=== PATIENT | male | born 1965 | race Caucasian/White ===

== ENCOUNTER 2018-04-20 11:34 | Emergency (ER) | payer BC, OTHER ==
[~2018-04-20 11:34] MED LIST: ISOVUE-370 76%-LOCM 1 ML ONE
[2018-04-20 12:58] LABS: #Basophils 0.1 thou/uL (0.0-0.2); #Eosinphils 0.1 thou/uL (0.0-0.7); #Lymphocytes 1.4 thou/uL (1.20-3.40); #Monocytes 0.7 thou/uL (0.11-0.59); #Neutrophils 8.3 thou/uL (1.40-6.50); %Basophils 0.7 % (0.0-1.0); %Eosinophils 1.3 % (0.0-10.0); %Lymphocytes 13.1 % (21.0-51.0); %Monocytes 6.7 % (0.0-10.0); %Neutrophils 78.2 % (42.0-75.0); Hemoglobin 13.6 g/dL (14.0-18.0); Mean Corpuscular HGB CONC 33.6 g/dL (32.0-36.0); Mean Corpuscular Hemoglobin 27.2 pg (27.0-31.0); Mean Corpuscular Volume 80.9 fL (78.0-98.0); Mean Platelet Volume 7.7 fL (7.4-10.4); Platelet Count 386 thou/uL (130-400); RBC Distribution Width 12.7 % (11.5-14.5); Red Blood Cell (RBC) Count 5.01 mill/uL (4.70-6.10); White Blood Cell (WBC) Count 10.6 thou/uL (4.8-10.8)
[2018-04-20 13:14] LABS: Bilirubin Negative (Negative); Blood, Urine Moderate (Negative); Clarity CLEAR (Clear); Glucose, Urine (Dipstick) >=1000 mg/dL (Negative); Leukocyte Negative (Negative); Nitrite Negative (Negative); Protein, Urine (Dipstick) Negative (Neg-Trace); Specific Gravity, Urine 1.021 (1.002-1.036); Urobilinogen 0.2 mg/dL (0.2-1.0); pH, Urine 6.5 (5.0-9.0)
[2018-04-20 13:16] LABS: Bacteria/HPF None Seen HPF (None Seen); Hyaline Casts/LPF 0-3 HYALINE CAST LPF (0-3 Hyaline); Pathc Cast-AUWi Flag 0.14 (0-2.49); Squamous Epithelial 0-3 HPF (0-3); WBC/HPF 0-3 HPF (0-3)
[2018-04-20 13:40] LABS: AST (SGOT) 14 U/L (5-34); Potassium 4.6 mmol/L (3.5-5.1); Protein, Total 7.5 g/dL (6.0-8.3)
[2018-04-20 13:44] LABS: ALT (SGPT) 18 U/L (8-55); Albumin 3.4 g/dL (3.5-5.0); Alkaline Phosphatase 132 U/L (40-150); BUN (Urea Nitrogen) 18 mg/dL (8.4-25.7); Bilirubin, Total 0.3 mg/dL (0.2-1.2); Calc. Creatinine Clearance 0 mL/min (70-130); Calcium 9.7 mg/dL (7.8-10.44); Carbon Dioxide 23 mmol/L (22-29); Chloride 96 mmol/L (98-107); Estimated GFR-MDRD 68; Globulin 4.1 g/dL (2.4-3.5); Glucose 350 mg/dL (70-105); Lipase 12 U/L (8-78); Sodium 129 mmol/L (136-145)
[2018-04-20 13:45] LABS: Anion Gap 15 mmol/L (10-20)
--- NOTE | 2018-04-20 14:12 | CT ---
CT OF THE ABDOMEN AND PELVIS WITH IV CONTRAST: Date: 04/20/18 INDICATION: History of lower abdominal pain and hypertension. FINDINGS: The lung bases demonstrate subsegmental atelectasis. There is mild fatty infiltration of the liver. There is a calcified granuloma within the spleen. The spleen is upper limits of normal for size measuring 12.7 cm. The pancreas, adrenal glands, and kidneys appear within normal limits. No free fluid or enlarged lymph nodes are evident. There are mild vascular calcifications noted involving the abdominopelvic vasculature. Bladder, rectum, and perirectal soft tissues are unremarkable appearing. There is mild amount of retained stool within the colon. There is a normal appendix in the right lowe r quadrant. Small bone island present within the L1 vertebra. No acute osseous abnormality is evident. IMPRESSION: 1. Mild fatty liver. 2. Spleen upper limits of normal for size measuring 12.7 cm. 3. Findings of prior granulomatous disease. 4. Mild amount of retained stool within the colon. POS: C
[2018-04-20] MEDS ORDERED: Hydrochlorothiazide 25 MG TAB PO SCH (14:45)
== END 2018-04-20 15:03 | disposition home or self-care (01) ==
LOC: ERS 11:34
DX: E11.9 Type 2 diabetes mellitus without complications (principal); I10 Essential (primary) hypertension
CPT/HCPCS: 74177; 80053; 81003; 81015; 83690; 84484; 85025

== ENCOUNTER 2018-05-26 08:07 | Outpatient (CLI) | payer BC ==
--- NOTE | 2018-05-26 10:36 | CT ---
CT THORAX WITH IV CONTRAST: Date: 05-26-18 History: Granulomatous disease. Comparison: CT abdomen/pelvis, 04-20-18. FINDINGS: A tiny 3 mm noncalcified pulmonary nodule is seen in the anterolateral aspect of the right middle lob e. There are two separate subpleural nodular densities seen at the right lung base measuring less jarrod n 3 mm as well as a less than 3 mm pleural nodular density at the left lung base. No pleural effusion or mass is visualized. The lungs are otherwise clear. Mediastinal structures have a normal appearance. There is no evidence of lymphadenopathy. The thoraci c aorta is normal in caliber. There is evidence of a splenic granuloma which was also seen on the CT examination within the body of the spleen. Visualized upper abdomen otherwise has a normal CT appearance. IMPRESSION: Tiny difficult to characterize pulmonary nodules measuring 3 mm or less seen within the right middle lobe and at each lung base as described above. POS: [facility]
[2018-05-26] MEDS ORDERED: Iopamidol 370 76% 100 ML VIAL ONE (10:42)
== END 2018-05-26 08:08 | disposition home or self-care (01) ==
LOC: SCSCT 08:07
PROVIDERS: ATTEND Internal Medicine Hematology & Oncology
DX: D71 Functional disorders of polymorphonuclear neutrophils (principal); R16.1 Splenomegaly, not elsewhere classified; R91.8 Other nonspecific abnormal finding of lung field
CPT/HCPCS: 71260

== ENCOUNTER 2018-06-07 09:58 | Emergency (ER) | payer BC ==
[2018-06-07 11:55] LABS: Hemoglobin A1c 10.5 % (4.0-6.0)
[2018-06-07 12:11] LABS: ALT (SGPT) 20 U/L (8-55); AST (SGOT) 17 U/L (5-34); Albumin 4.1 g/dL (3.5-5.0); Alkaline Phosphatase 99 U/L (40-150); Anion Gap 11 mmol/L (10-20); BUN (Urea Nitrogen) 14 mg/dL (8.4-25.7); Bilirubin, Total 0.5 mg/dL (0.2-1.2); Calc. Creatinine Clearance 0 mL/min (70-130); Calcium 9.5 mg/dL (7.8-10.44); Carbon Dioxide 26 mmol/L (22-29); Chloride 103 mmol/L (98-107); Estimated GFR-MDRD 82; Globulin 3.2 g/dL (2.4-3.5); Glucose 185 mg/dL (70-105); Potassium 4.1 mmol/L (3.5-5.1); Protein, Total 7.3 g/dL (6.0-8.3); Sodium 136 mmol/L (136-145)
== END 2018-06-07 12:18 | disposition home or self-care (01) ==
LOC: ERS 09:58
DX: R25.1 Tremor, unspecified (principal); E11.9 Type 2 diabetes mellitus without complications; I10 Essential (primary) hypertension; Z79.899 Other long term (current) drug therapy; Z79.4 Long term (current) use of insulin
CPT/HCPCS: 36415; 36416; 80053; 83036; 99283

== ENCOUNTER 2020-12-26 13:41 | Inpatient (IN) | payer BC ==
[~2020-12-26 13:41] MED LIST changes: -ISOVUE-370 76%-LOCM 1 ML ONE; +Iopamidol 370 76% 100 ML VIAL ONE; +Iopamidol 370 76% 50 ML VIAL FS ONE
[2020-12-26] MEDS ORDERED: Lidocaine 1% (PF) 30 ML VIAL ONE ×2 (14:04→14:06)
[2020-12-26] MEDS ORDERED: Verapamil 5 MG/2 ML VIAL ONE (14:15)
[2020-12-26] MEDS ORDERED: Heparin 10,000 UNITS/ 10 ML VIAL ONE (14:16)
[2020-12-26 14:18] LABS: #Eosinphils 0.1 thou/uL (0.0-0.7); #Lymphocytes 1.5 thou/uL (1.20-3.40); #Neutrophils 9.8 thou/uL (1.40-6.50); %Basophils 0.2 % (0.0-1.0); %Eosinophils 0.7 % (0.0-10.0); %Lymphocytes 12.3 % (21.0-51.0); %Neutrophils 78.7 % (42.0-75.0); Hemoglobin 15.8 g/dL (14.0-18.0); Mean Corpuscular HGB CONC 31.3 g/dL (32.0-36.0); Mean Corpuscular Hemoglobin 26.9 pg (27.0-31.0); Mean Platelet Volume 8.6 fL (7.4-10.4); Platelet Count 310 thou/uL (130-400); RBC Distribution Width 12.9 % (11.5-14.5); Red Blood Cell (RBC) Count 5.87 mill/uL (4.70-6.10); White Blood Cell (WBC) Count 12.4 thou/uL (4.8-10.8)
[2020-12-26 14:25] LABS: INR-International Normal Ratio 1.2; PTT 28.8 sec (22.9-36.1); Prothrombin Time 14.8 sec (12.0-14.7)
[2020-12-26] MEDS ORDERED: Midazolam HCl 2 mg/2 ml Vial ONE (14:26)
[2020-12-26] MEDS ORDERED: hydrALAZINE 20 MG/ML VIAL ONE (14:31)
[2020-12-26 14:45] LABS: ALT (SGPT) 70 U/L (8-55); AST (SGOT) 23 U/L (5-34); Albumin 3.9 g/dL (3.5-5.0); Alkaline Phosphatase 155 U/L (40-110); Anion Gap 14 mmol/L (10-20); BUN (Urea Nitrogen) 17 mg/dL (8.4-25.7); Bilirubin, Total 0.8 mg/dL (0.2-1.2); Calc. Creatinine Clearance 0 mL/min (70-130); Calcium 10.1 mg/dL (7.8-10.44); Carbon Dioxide 28 mmol/L (22-29); Chloride 98 mmol/L (98-107); Globulin 3.7 g/dL (2.4-3.5); Glucose 275 mg/dL (70-105); Potassium 4.5 mmol/L (3.5-5.1); Protein, Total 7.6 g/dL (6.0-8.3); Sodium 135 mmol/L (136-145)
[2020-12-26] MEDS ORDERED: Atropine Sulfate 1 mg/10 ml Syringe ONE (14:55)
[2020-12-26] MEDS ORDERED: Ondansetron PF 4 MG/2 ML Vial ONE (14:55)
[2020-12-26] MEDS ORDERED: Morphine 2 MG/ML VIAL SLOW IVP PRN (15:28)
[2020-12-26] MEDS ORDERED: Nitroglycerin 0.4 MG TAB (25 Tab Bottle) SL PRN (15:28)
[2020-12-26] MEDS ORDERED: Heparin 25,000 units/D5W 500 ML IVPB SCH (15:30)
[2020-12-26] MEDS ORDERED: Heparin 10,000 UNITS/ 10 ML VIAL SLOW IVP SCH (15:30)
[2020-12-26 15:47] LABS: CKMB 1.3 ng/mL (0-6.6)
[2020-12-26] MEDS ORDERED: [UNRECOGNIZED DRUG - REMARK] FS PRN (16:02)
[2020-12-26] MEDS ORDERED: Diazepam 5 MG TAB PO PRN (16:02)
[2020-12-26 16:40] LABS: Hemoglobin 15.8 g/dL (14.0-18.0); Platelet Count 295 thou/uL (130-400)
[2020-12-26 16:52] LABS: PTT 117.7 sec (22.9-36.1)
[2020-12-26 17:12] LABS: Critical Call Chem Troponin I RESULT DECREASING; Troponin I 4.962 ng/mL (< 0.028)
[2020-12-26] MEDS ORDERED: Metoprolol Tartrate 25 MG TAB PO SCH ×2 (17:30→21:00)
[2020-12-26 20:36] LABS: Troponin I 4.992 ng/mL (< 0.028)
[2020-12-26] MEDS ORDERED: Heparin 5,000 UNITS/ML VIAL SC SCH (21:00)
[2020-12-26] MEDS ORDERED: Atorvastatin Calcium 40 MG TAB PO SCH (21:00)
[2020-12-26] MEDS: Nitroglycerin 2% Ointment 1 INCH/1 GM Packet TOP SCH (21:02)
[2020-12-27] MEDS ORDERED: hydrALAZINE 20 MG/ML VIAL SLOW IVP PRN ×2 (01:21→11:50)
[2020-12-27 03:59] LABS: #Basophils 0.1 thou/uL (0.0-0.2); #Eosinphils 0.2 thou/uL (0.0-0.7); #Lymphocytes 1.4 thou/uL (1.20-3.40); #Monocytes 0.9 thou/uL (0.11-0.59); #Neutrophils 7.6 thou/uL (1.40-6.50); %Basophils 0.6 % (0.0-1.0); %Eosinophils 1.5 % (0.0-10.0); %Lymphocytes 14.1 % (21.0-51.0); %Neutrophils 74.7 % (42.0-75.0); Hemoglobin 14.6 g/dL (14.0-18.0); Mean Corpuscular HGB CONC 33.8 g/dL (32.0-36.0); Mean Corpuscular Volume 85.9 fL (78.0-98.0); Mean Platelet Volume 8.4 fL (7.4-10.4); Platelet Count 283 thou/uL (130-400); RBC Distribution Width 12.9 % (11.5-14.5); Red Blood Cell (RBC) Count 5.03 mill/uL (4.70-6.10); White Blood Cell (WBC) Count 10.2 thou/uL (4.8-10.8)
[2020-12-27 04:31] LABS: Anion Gap 14 mmol/L (10-20); BUN (Urea Nitrogen) 14 mg/dL (8.4-25.7); Calc. Creatinine Clearance 94 mL/min (70-130); Calcium 8.5 mg/dL (7.8-10.44); Carbon Dioxide 24 mmol/L (22-29); Cardiac Risk 7.4 (Less than 4.5); Chloride 102 mmol/L (98-107); Cholesterol 148 mg/dl (< 200 Desired); Glucose 214 mg/dL (70-105); HDL Cholesterol 20 mg/dL (>60 Neg Risk); LDL Cholesterol, Calculated 100 mg/dL; Potassium 4.5 mmol/L (3.5-5.1); Sodium 135 mmol/L (136-145); Triglycerides 138 mg/dL (Less than 150)
[2020-12-27] MEDS ORDERED: EPINEPHrine 1 MG/ML AMP ONE (06:19)
[2020-12-27] MEDS ORDERED: Dexamethasone 4 mg/ml Vial ONE (06:19)
[2020-12-27] MEDS ORDERED: Albumin 5% 500 ML ONE (06:19)
[2020-12-27] MEDS ORDERED: Bupivacaine PF 0.5% 30 ML VIAL ONE (06:19)
[2020-12-27] MEDS ORDERED: Heparin 10,000 UNITS/1 ML VIAL 30,000 UNITS in Sodium Chloride 0.9% 1,000 ML FS SCH (06:45)
[2020-12-27] MEDS ORDERED: Fentanyl 250 MCG/5 ML VIAL ONE (06:57)
[2020-12-27] MEDS ORDERED: Dexmedetomidine 200 MCG/2 ML VIAL ONE (06:57)
[2020-12-27] MEDS ORDERED: Midazolam HCl 5 mg/5 ml Vial ONE (06:57)
[2020-12-27] MEDS: Nitroglycerin 2% Ointment 1 INCH/1 GM Packet TOP SCH (07:02)
[2020-12-27] MEDS ORDERED: CEFAZOLIN 2 GM in Premix Bag 1 BAG IVPB SCH (07:30)
[2020-12-27] MEDS ORDERED: Nitroglycerin 50 MG/250 ML BOT ONE (07:56)
[2020-12-27] MEDS ORDERED: PROPOFOL 200 MG/20 ML VIAL ONE (07:56)
[2020-12-27] MEDS ORDERED: Lidocaine 1% PF 5 ML VIAL ONE (07:56)
[2020-12-27] MEDS ORDERED: Potassium Chloride 60 MEQ/30 ML VIAL ONE (07:56)
[2020-12-27] MEDS ORDERED: Aminocaproic Acid 5 GM/20 ML VIAL ONE (07:56)
[2020-12-27] MEDS ORDERED: Sodium Bicarb 50 MEQ/50 ML Abboject 8.4% SYRINGE ONE (07:56)
[2020-12-27] MEDS ORDERED: Glycopyrrolate 0.2 MG/ML 5 ML SYRINGE ONE (07:56)
[2020-12-27] MEDS ORDERED: Protamine Sulfate 250 MG/25 ML VIAL ONE (07:56)
[2020-12-27] MEDS ORDERED: Vecuronium 10 MG VIAL ONE (07:56)
[2020-12-27] MEDS ORDERED: Norepinephrine 4 MG/4 ML VIAL ONE (07:56)
[2020-12-27] MEDS ORDERED: Magnesium Sulfate 1 GM/2 ML VIAL ONE (07:56)
[2020-12-27] MEDS ORDERED: Cardioplegic Soln 1,000 ML BAG ONE (07:56)
[2020-12-27] MEDS ORDERED: Heparin 30,000 units/30 ml VIAL ONE (07:56)
[2020-12-27] MEDS ORDERED: Calcium Chloride 1 GM/10 ML Abboject SYRINGE ONE (07:56)
[2020-12-27] MEDS ORDERED: Heparin 5,000 UNITS/ML VIAL ONE (07:56)
[2020-12-27] MEDS ORDERED: Dexamethasone 20 MG/5 ML VIAL ONE (07:56)
[2020-12-27] MEDS ORDERED: Papaverine 60 MG/2 ML VIAL ONE (07:56)
[2020-12-27] MEDS ORDERED: Ondansetron PF 4 MG/2 ML Vial ONE (07:56)
[2020-12-27] MEDS ORDERED: Thrombin 5000 UNITS/5 ML VIAL ONE (07:56)
[2020-12-27] MEDS ORDERED: Lidocaine 2% PF 100 mg/5 ml Syringe ONE (07:56)
[2020-12-27] MEDS ORDERED: Insulin Regular 300 UNITS/3 ML VIAL ONE (08:50)
[2020-12-27] MEDS ORDERED: Aspirin 325 mg Enteric Coated Tablet PO SCH (09:00)
[2020-12-27] MEDS ORDERED: Lisinopril 2.5 MG TAB PO SCH (09:00)
[2020-12-27] MEDS ORDERED: Metoprolol Tartrate 25 MG TAB PO SCH (09:00)
[2020-12-27] MEDS ORDERED: HumaLOG 300 UNITS/3 ML VIAL SC PRN (09:14)
[2020-12-27] MEDS ORDERED: Dextrose 50% Abboject 50 ML SYRINGE SLOW IVP PRN ×2 (09:14→13:15)
[2020-12-27] MEDS ORDERED: Dextrose 5% in Water 1,000 ML IV PRN ×2 (09:14→13:15)
[2020-12-27] MEDS ORDERED: Post-Op Insulin Drip Protocol IVPB ONE (11:50)
[2020-12-27] MEDS ORDERED: Fentanyl 100 MCG/2 ML VIAL SLOW IVP PRN ×2 (11:50)
[2020-12-27] MEDS ORDERED: Bisacodyl 5 MG TAB PO PRN (11:50)
[2020-12-27] MEDS ORDERED: Acetaminophen 325 MG TAB PO PRN (11:50)
[2020-12-27] MEDS ORDERED: Bisacodyl 10 MG SUPP PR PRN (11:50)
[2020-12-27] MEDS ORDERED: traMADol HCl 50 MG TAB PO PRN ×2 (11:50)
[2020-12-27] MEDS ORDERED: Guaifenesin DM 100-10/5 ML UDCUP PO PRN (11:50)
[2020-12-27] MEDS ORDERED: Mag-Al 1200 mg/1200 mg/30 ML UDCUP PO PRN (11:50)
[2020-12-27] MEDS ORDERED: Norepinephrine 8 MG/0.9% NS 250 ML IVPB PRN (11:50)
[2020-12-27] MEDS ORDERED: D5 1/2 NS w/20 mEq KCL 1,000 ML IV SCH (11:50)
[2020-12-27] MEDS ORDERED: Nitroglycerin 50 MG/250 ML BOT 250 ML IVPB PRN (11:50)
[2020-12-27] MEDS ORDERED: Potassium Chloride 20 MEQ/100 ML PREMIX BAG IVPB PRN (11:50)
[2020-12-27] MEDS ORDERED: Hetastarch 6% 500 ML 500 ML IVPB PRN (11:50)
[2020-12-27] MEDS ORDERED: Morphine 2 MG/ML VIAL SLOW IVP PRN (11:50)
[2020-12-27 11:57] LABS: #Basophils 0.1 thou/uL (0.0-0.2); #Eosinphils 0.2 thou/uL (0.0-0.7); #Lymphocytes 0.8 thou/uL (1.20-3.40); #Monocytes 1.4 thou/uL (0.11-0.59); #Neutrophils 16.8 thou/uL (1.40-6.50); %Basophils 0.3 % (0.0-1.0); %Lymphocytes 4.2 % (21.0-51.0); %Neutrophils 87.4 % (42.0-75.0); Mean Corpuscular HGB CONC 32.4 g/dL (32.0-36.0); Mean Corpuscular Volume 86.4 fL (78.0-98.0); Mean Platelet Volume 8.3 fL (7.4-10.4); Platelet Count 271 thou/uL (130-400); RBC Distribution Width 12.7 % (11.5-14.5); Red Blood Cell (RBC) Count 4.64 mill/uL (4.70-6.10); White Blood Cell (WBC) Count 19.2 thou/uL (4.8-10.8)
[2020-12-27 12:08] LABS: INR-International Normal Ratio 1.5
[2020-12-27 12:09] LABS: PTT 28.4 sec (22.9-36.1)
[2020-12-27 12:19] LABS: Anion Gap 12 mmol/L (10-20); BUN (Urea Nitrogen) 13 mg/dL (8.4-25.7); Calc. Creatinine Clearance 92 mL/min (70-130); Calcium 7.8 mg/dL (7.8-10.44); Carbon Dioxide 24 mmol/L (22-29); Chloride 107 mmol/L (98-107); Glucose 126 mg/dL (70-105); Potassium 3.9 mmol/L (3.5-5.1); Sodium 139 mmol/L (136-145)
[2020-12-27] MEDS: Ketorolac Tromethamine 30 MG/ML VIAL IVP SCH ×2 (13:14→17:12)
[2020-12-27] MEDS ORDERED: HUMULIN R 100 UNITS in Sodium Chloride 0.9% 100 ML IVPB SCH (13:15)
[2020-12-27] MEDS: CEFAZOLIN 2 GM in Premix Bag 1 BAG IVPB SCH ×2 (13:15→21:07)
[2020-12-27] MEDS ORDERED: Insulin Regular 300 UNITS/3 ML VIAL SC PRN (13:15)
[2020-12-27] MEDS ORDERED: Lantus 1000 UNITS/10 ML VIAL SC PRN (13:15)
[2020-12-27 14:14] LABS: Actual Bicarbonate (HCO3a) 24.3 mEq/L (22-28); Base Excess (BEa) -2.2 mEq/L (-2.0 to +3.0); CO2 Tension 48.7 mmHg (35.0-45.0); Calcium, Ionized (arterial) 1.08 mmol/L (1.12-1.30); Carboxyhemoglobin (COHb) 0.3 gm% (0.0-3.0); Hemoglobin (Hb) 13.2 g/dL (14.0-18.0); O2 Tension (PaO2), arterial 334.2 mmHg (80.0-100.0); Potassium - ABG Lab 3.65 mmol/L (3.70-5.30); pH, Arterial 7.32 (7.35-7.45)
[2020-12-27 14:15] LABS: ALV-art Gradient 317.925 mmHg (0-20); Puncture Site ALINE
[2020-12-27] MEDS: Ondansetron PF 4 MG/2 ML Vial IVP PRN ×2 (14:43→21:09)
[2020-12-27 18:28] LABS: Hemoglobin 13.7 g/dL (14.0-18.0)
[2020-12-27 18:41] LABS: Potassium 3.7 mmol/L (3.5-5.1)
[2020-12-27] MEDS: Atorvastatin Calcium 40 MG TAB PO SCH (20:57)
[2020-12-27] MEDS ORDERED: Famotidine/PF 20 mg/2ml Vial SLOW IVP SCH (21:00)
[2020-12-28] MEDS: Ketorolac Tromethamine 30 MG/ML VIAL IVP SCH ×4 (00:09→17:17)
[2020-12-28] MEDS: Ondansetron PF 4 MG/2 ML Vial IVP PRN (02:36)
[2020-12-28 04:24] LABS: Anion Gap 14 mmol/L (10-20); BUN (Urea Nitrogen) 14 mg/dL (8.4-25.7); Calc. Creatinine Clearance 83 mL/min (70-130); Calcium 7.8 mg/dL (7.8-10.44); Carbon Dioxide 22 mmol/L (22-29); Chloride 104 mmol/L (98-107); Glucose 147 mg/dL (70-105); Potassium 4.4 mmol/L (3.5-5.1); Sodium 136 mmol/L (136-145)
[2020-12-28 05:05] LABS: Band 23 % (5-11); Hemoglobin 12.5 g/dL (14.0-18.0); Lymphocytes 3 % (21-51); MDiff Complete? YES; Mean Corpuscular HGB CONC 30.9 g/dL (32.0-36.0); Mean Corpuscular Hemoglobin 27.1 pg (27.0-31.0); Mean Corpuscular Volume 87.6 fL (78.0-98.0); Mean Platelet Volume 8.3 fL (7.4-10.4); Monocytes 6 % (0-10); Neutrophil 68 % (42-75); Platelet Count 293 thou/uL (130-400); RBC Distribution Width 12.7 % (11.5-14.5); White Blood Cell (WBC) Count 20.7 thou/uL (4.8-10.8)
[2020-12-28 05:23] LABS: Magnesium 2.3 mg/dL (1.6-2.6)
[2020-12-28] MEDS: CEFAZOLIN 2 GM in Premix Bag 1 BAG IVPB SCH (05:25)
[2020-12-28] MEDS ORDERED: Ondansetron HCl/PF 4 MG in Sodium Chloride 0.9% 50 ML IVPB SCH (06:30)
[2020-12-28 06:41] VITALS: BMI 24.9
[2020-12-28] MEDS ORDERED: Ondansetron PF 4 MG/2 ML Vial IVP SCH (06:45)
[2020-12-28] MEDS ORDERED: diphenhydrAMINE 25 MG CAP PO PRN (07:53)
[2020-12-28] MEDS ORDERED: Mag-Al 1200 mg/1200 mg/30 ML UDCUP PO PRN (07:53)
[2020-12-28] MEDS ORDERED: Guaifenesin DM 100-10/5 ML UDCUP PO PRN (07:53)
[2020-12-28] MEDS ORDERED: Mineral Oil ENEMA PR PRN (07:53)
[2020-12-28] MEDS ORDERED: Zolpidem Tartrate 5 MG TAB PO PRN (07:53)
[2020-12-28] MEDS ORDERED: Milk Of Magnesia 30 ML UDCUP PO PRN (07:53)
[2020-12-28] MEDS ORDERED: Bisacodyl 5 MG TAB PO PRN (07:53)
[2020-12-28] MEDS ORDERED: Bisacodyl 10 MG SUPP PR PRN (07:53)
[2020-12-28] MEDS ORDERED: Nitroglycerin 0.4 MG TAB (25 Tab Bottle) SL PRN (07:53)
[2020-12-28] MEDS ORDERED: Dextrose 5% in Water 1,000 ML IV PRN (08:15)
[2020-12-28] MEDS ORDERED: Dextrose 50% Abboject 50 ML SYRINGE SLOW IVP PRN (08:15)
[2020-12-28] MEDS: Metoclopramide HCl 10 MG/2 ML VIAL IVP SCH ×3 (08:55→20:23)
[2020-12-28] MEDS ORDERED: Lisinopril 10 MG TAB PO SCH (09:00)
[2020-12-28] MEDS ORDERED: Aspirin Chewable 81 MG TAB PO SCH (09:00)
[2020-12-28] MEDS: Clopidogrel Bisulfate 75 MG TAB PO SCH (09:06)
[2020-12-28] MEDS: Furosemide 40 MG TAB PO SCH (09:06)
[2020-12-28] MEDS: Famotidine 20 MG TAB PO SCH ×2 (09:06→20:26)
[2020-12-28] MEDS: Lisinopril 5 MG TAB PO SCH ×2 (09:07→20:23)
[2020-12-28] MEDS: Carvedilol 3.125 MG TAB PO SCH ×2 (09:07→20:26)
[2020-12-28] MEDS: Aspirin 325 mg Enteric Coated Tablet PO SCH (09:27)
[2020-12-28] MEDS: Empagliflozin 10 MG TAB PO SCH (10:00)
[2020-12-28] MEDS: Insulin Regular 300 UNITS/3 ML VIAL SC PRN (17:17)
[2020-12-28] MEDS: Atorvastatin Calcium 40 MG TAB PO SCH (20:26)
[2020-12-29] MEDS: Ketorolac Tromethamine 30 MG/ML VIAL IVP SCH ×5 (00:06→23:57)
[2020-12-29] MEDS: Metoclopramide HCl 10 MG/2 ML VIAL IVP SCH (03:31)
[2020-12-29] MEDS: Clopidogrel Bisulfate 75 MG TAB PO SCH (08:21)
[2020-12-29] MEDS: Aspirin 325 mg Enteric Coated Tablet PO SCH (08:22)
[2020-12-29] MEDS: Empagliflozin 10 MG TAB PO SCH (08:22)
[2020-12-29] MEDS: Famotidine 20 MG TAB PO SCH ×2 (08:22→20:19)
[2020-12-29] MEDS: Lisinopril 5 MG TAB PO SCH ×2 (08:22→20:19)
[2020-12-29] MEDS: Furosemide 40 MG TAB PO SCH (08:22)
[2020-12-29] MEDS ORDERED: Carvedilol 3.125 MG TAB PO SCH (09:00)
[2020-12-29] MEDS: Carvedilol 6.25 MG TAB PO SCH (16:58)
[2020-12-29 17:08] LABS: #Eosinphils 0.1 thou/uL (0.0-0.7); #Lymphocytes 1.3 thou/uL (1.20-3.40); #Monocytes 1.7 thou/uL (0.11-0.59); #Neutrophils 17.6 thou/uL (1.40-6.50); %Basophils 0.2 % (0.0-1.0); %Eosinophils 0.5 % (0.0-10.0); %Lymphocytes 6.1 % (21.0-51.0); %Neutrophils 85.2 % (42.0-75.0); Hemoglobin 14.6 g/dL (14.0-18.0); Mean Corpuscular HGB CONC 32.7 g/dL (32.0-36.0); Mean Corpuscular Volume 88.7 fL (78.0-98.0); Mean Platelet Volume 8.3 fL (7.4-10.4); Platelet Count 300 thou/uL (130-400); RBC Distribution Width 13.2 % (11.5-14.5); Red Blood Cell (RBC) Count 5.03 mill/uL (4.70-6.10); White Blood Cell (WBC) Count 20.6 thou/uL (4.8-10.8)
[2020-12-29] MEDS: Atorvastatin Calcium 40 MG TAB PO SCH (20:19)
[2020-12-29] MEDS: Insulin Regular 300 UNITS/3 ML VIAL SC PRN (22:30)
[2020-12-30 05:43] LABS: Ferritin 264.3 ng/mL (22-322); Thyroid Stimulating Hormone 0.8434 uIU/mL (0.35-4.94)
[2020-12-30] MEDS: Ketorolac Tromethamine 30 MG/ML VIAL IVP SCH ×2 (06:23→13:26)
[2020-12-30 07:39] VITALS: TEMP 98
[2020-12-30] MEDS ORDERED: Carvedilol 25 MG TAB PO SCH (08:00)
[2020-12-30] MEDS: Clopidogrel Bisulfate 75 MG TAB PO SCH (08:23)
[2020-12-30] MEDS: Furosemide 40 MG TAB PO SCH (08:23)
[2020-12-30] MEDS: Famotidine 20 MG TAB PO SCH (08:23)
[2020-12-30] MEDS: Carvedilol 6.25 MG TAB PO SCH (08:50)
[2020-12-30] MEDS ORDERED: Lisinopril 20 MG TAB PO SCH (09:00)
[2020-12-30] MEDS ORDERED: Aspirin 81 mg Enteric Coated Tablet PO SCH (09:00)
[2020-12-30] MEDS: Empagliflozin 10 MG TAB PO SCH (10:11)
[2020-12-30] MEDS ORDERED: cefTRIAXone\\ROCEPHIN 1 GM in Sodium Chloride 0.9% 100 ML IVPB SCH (11:00)
[2020-12-30 13:02] LABS: #Eosinphils 0.1 thou/uL (0.0-0.7); #Monocytes 1.1 thou/uL (0.11-0.59); %Basophils 0.3 % (0.0-1.0); %Eosinophils 0.7 % (0.0-10.0); %Lymphocytes 7.2 % (21.0-51.0); %Monocytes 7.7 % (0.0-10.0); %Neutrophils 84.1 % (42.0-75.0); Hemoglobin 11.9 g/dL (14.0-18.0); Mean Corpuscular HGB CONC 32.2 g/dL (32.0-36.0); Mean Corpuscular Hemoglobin 28.2 pg (27.0-31.0); Mean Corpuscular Volume 87.4 fL (78.0-98.0); Mean Platelet Volume 8.2 fL (7.4-10.4); Platelet Count 266 thou/uL (130-400); Red Blood Cell (RBC) Count 4.23 mill/uL (4.70-6.10); White Blood Cell (WBC) Count 14.3 thou/uL (4.8-10.8)
[2020-12-30 13:21] LABS: Anion Gap 19 mmol/L (10-20); Calcium 7.7 mg/dL (7.8-10.44); Carbon Dioxide 17 mmol/L (22-29); Chloride 103 mmol/L (98-107); Sodium 135 mmol/L (136-145)
[2020-12-30 13:37] LABS: Glucose 127 mg/dL (70-105)
[2020-12-30 13:41] LABS: BUN (Urea Nitrogen) 22 mg/dL (8.4-25.7)
[2020-12-30 13:59] LABS: Calc. Creatinine Clearance 75 mL/min (70-130)
[2020-12-30 14:34] VITALS: BP 112/65
[2020-12-30] MEDS ORDERED: Furosemide 40 MG/4 ML VIAL SLOW IVP SCH (14:45)
[2020-12-30] MEDS ORDERED: Furosemide 40 MG TAB PO SCH (15:45)
== END 2020-12-30 15:40 | disposition home or self-care (01) | DRG 233 ==
LOC: ERS 13:41 → CCU 14:15 → CCL 14:22 → CCU 15:28 → 2NO 12-28 11:57
PROVIDERS: ADMIT Internal Medicine Cardiovascular Disease; ATTEND Internal Medicine Cardiovascular Disease
PROC: 4A023N8 Measurement of Cardiac Sampling and Pressure, Bilateral, Percutaneous Approach (ICD-10-PCS; 2020-12-26)
PROC: B2151ZZ Fluoroscopy of Left Heart using Low Osmolar Contrast (ICD-10-PCS; 2020-12-26)
PROC: B2111ZZ Fluoroscopy of Multiple Coronary Arteries using Low Osmolar Contrast (ICD-10-PCS; 2020-12-26)
PROC: 021009W Bypass Coronary Artery, One Artery from Aorta with Autologous Venous Tissue, Open Approach (ICD-10-PCS; principal; 2020-12-27)
PROC: 02100Z9 Bypass Coronary Artery, One Artery from Left Internal Mammary, Open Approach (ICD-10-PCS; 2020-12-27)
PROC: 06BQ4ZZ Excision of Left Saphenous Vein, Percutaneous Endoscopic Approach (ICD-10-PCS; 2020-12-27)
PROC: 5A1221Z Performance of Cardiac Output, Continuous (ICD-10-PCS; 2020-12-27)
PROC: 0B9P0ZZ Drainage of Left Pleura, Open Approach (ICD-10-PCS; 2020-12-27)
PROC: 0B9N0ZZ Drainage of Right Pleura, Open Approach (ICD-10-PCS; 2020-12-27)
DX: I21.19 ST elevation (STEMI) myocardial infarction involving other coronary artery of inferior wall (principal); J18.9 Pneumonia, unspecified organism; J95.89 Other postprocedural complications and disorders of respiratory system, not elsewhere classified; J98.11 Atelectasis; J90 Pleural effusion, not elsewhere classified; Z20.822 Contact with and (suspected) exposure to COVID-19; Y83.8 Other surgical procedures as the cause of abnormal reaction of the patient, or of later complication, without mention of misadventure at the time of the procedure; I10 Essential (primary) hypertension; F17.210 Nicotine dependence, cigarettes, uncomplicated; I25.10 Atherosclerotic heart disease of native coronary artery without angina pectoris; E11.40 Type 2 diabetes mellitus with diabetic neuropathy, unspecified; E78.5 Hyperlipidemia, unspecified; E78.00 Pure hypercholesterolemia, unspecified; E11.65 Type 2 diabetes mellitus with hyperglycemia; E87.70 Fluid overload, unspecified; D64.9 Anemia, unspecified; I95.9 Hypotension, unspecified; Z88.8 Allergy status to other drugs, medicaments and biological substances; Z82.49 Family history of ischemic heart disease and other diseases of the circulatory system; Z79.899 Other long term (current) drug therapy
CPT/HCPCS: 36415; 36416; 36430; 71045; 80048; 80053; 80061; 82553; 82607; 82728; 82746; 82805; 83735; 84443; 84484; 85025; 85347; 85610; 85730; 86850; 86900; 86901; 93005; 93010; 93458; 93798; 94640; 94660; 99152; J0171; J0360; J0461; J0690; J0696; J1100; J1644; J1815; J1885; J2001; J2250; J2405; J2440; J2704; J2720; J2765; J3010; J3370; J3475; J3480; J3490; J7620; P9045; Q9967; S0017; S0020; S0028